=== PATIENT | female | born 1940 | race Caucasian/White ===

== ENCOUNTER 2017-08-14 08:31 | Outpatient (CLI) | payer MEDICARE, BC ==
--- NOTE | 2017-08-14 09:54 | ULT ---
RIGHT UPPER QUADRANT ULTRASOUND: History: Gallbladder removed 5 years ago. Right upper quadrant pain. Comparison: None. Technique: Utilizing a Multihertz transducer, sonographic imaging of the right upper quadrant is perf ormed in the longitudinal and transverse plane. FINDINGS: Heterogeneous echotexture of the liver may be due technical limitations. The possibility of hepatic s teatosis or hepatocellular disease cannot be excluded. Right hepatic lobe measures 17.1 cm. Gallbladder is surgically absent. Right renal cortical thinning. No hydronephrosis. Right kidney measures 9.7 x 5.3 x 4.9 cm. Common bile duct measures 0.6 cm. Pancreatis is poorly defined due to bowel gas. IMPRESSION: Increased echogenicity of the liver which may be due technical limitations. Hepatic steatosis and hep atocellular disease must also be considered. If there is concern for hepatic mass, consider liver mas s protocol CT. POS: PAGE
== END 2017-08-14 08:32 | disposition home or self-care (01) ==
LOC: ULT 08:31
PROVIDERS: ATTEND Obstetrics & Gynecology
DX: R10.11 Right upper quadrant pain (principal); K76.0 Fatty (change of) liver, not elsewhere classified; K76.9 Liver disease, unspecified
CPT/HCPCS: 76705

== ENCOUNTER 2019-07-15 22:13 | Emergency (ER) | payer MEDICARE, BC ==
--- NOTE | 2019-07-15 23:41 | CT ---
CT BRAIN WITHOUT CONTRAST: HISTORY: Fall, unwitnessed COMPARISON: 03/05/2014 FINDINGS: No evidence of acute infarct, hemorrhage, midline shift or abnormal extra-axial fluid collections is seen. The ventricular size is appropriate and the basilar cisterns are patent. The bony calvarium is intact. The visualized paranasal sinuses and mastoid air cells are well aerated. IMPRESSION: No CT evidence of acute intracranial process.
== END 2019-07-16 03:37 ==
LOC: ERS 22:13
DX: F10.129 Alcohol abuse with intoxication, unspecified (principal); E03.9 Hypothyroidism, unspecified; F32.9 Major depressive disorder, single episode, unspecified; Z79.899 Other long term (current) drug therapy; Y90.6 Blood alcohol level of 120-199 mg/100 ml
CPT/HCPCS: 36415; 70450; 80307